=== PATIENT | female | born 2005 | race Asian ===

== ENCOUNTER 2023-03-06 10:54 | Emergency (ER) | payer OTHER, SELFPAY ==
[2023-03-06 10:56] VITALS: BP 118/74; PULSE 104; RESP 18; TEMP 35.8; O2SAT 99; BMI 21.4
--- NOTE | 2023-03-06 11:04 | ED.VIS.FEGU ---
HPI HPI - Female History of Present Illness Chief Complaint: Flank Pain Narrative Narrative: Patient presents with some dysuria and right-sided flank pain for 2 days. No fevers. Pain is constant and is not colicky. No hematuria. She denies any . No prior history of this. She was seen at [facility] and sent to the ED. [facility] Medical History no medical history Home Medications sulfamethoxazole 800 mg-trimethoprim 160 mg tablet (Bactrim DS) 1 tab PO BID #10 tabs 03/06/23 [Rx Last Taken Unknown] Allergy/AdvReac Type Severity Reaction Status Date / Time No Known Allergies Allergy Verified 03/06/23 10:55 Family History no significant family his Surgical History no surgical history Social History Smoking Status: Never smoker ROS ROS ED ROS Narrative Past medical history: Reviewed Medications: OCPs Social history: Noncontributory Review of systems: General: No fever Eyes: No visual changes ENT: No upper airway congestion, normal voice Gastrointestinal: No abdominal pain, nausea vomiting or diarrhea Genitourinary: Some dysuria. Some flank pain on the right Musculoskeletal: Denies myalgias no difficulty with ambulation Skin: No rash EXAM Physical Exam Narrative Exam Narrative: Physical exam General: Well nourished, Well developed, No Acute Distress Head: Normocephalic, Atraumatic Eyes: Conjunctiva not pale ENT: Moist mucous membranes Neck: Supple, Nontender, No lymphadenopathy Cardiovascular: Regular rate, Regular rhythm Respiratory: No distress, CTA bilaterally Abdomen: Soft, Nontender, Nondistended Back: Nontender, Normal Inspection. Slight right-sided CVA tenderness Extremities: Nontender, No edema Skin: Normal color, No rash Const Vital Signs: 03/06/23 10:56 Temperature 96.4 F L Temperature Source Temporal Pulse Rate 104 H Respiratory Rate 18 Blood Pressure 118/74 Blood Pressure Mean 88 Pulse Ox 99 Oxygen Delivery Method Room Air MDM MDM MDM Narrative Medical decision making narrative: Patient has some slight leuk esterases and blood. But the micro is negative. Because she is somewhat symptomatic I will treat her with a short course of antibiotics. 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 I do not believe a CT is warranted. I do not believe blood work is warranted. Lab Data Labs: Laboratory Results - last 24 hr 03/06/23 11:10 Urine Color Yellow Urine Clarity Sl. Cloudy Urine pH 7.0 Ur Specific [place] 1.005 Urine Protein 15 H Urine Glucose (UA) Normal Urine Ketones Negative Urine Occult Blood 25 H Urine Nitrite Negative Urine Bilirubin Negative Urine Urobilinogen Normal Ur Leukocyte Esterase 25 H Urine RBC 0-5 SEEN Urine WBC 0-5 SEEN Ur Squamous Epith Cells 0 SEEN Urine Bacteria 0 SEEN Urine Mucus 0 SEEN Urine Test Negative Discharge Plan Triage Chief Complaint: Flank Pain Other Complaint: Back ED Provider: Davis Tavares Dx/Rx/DC Orders Clinical Impression: Back pain, Dysuria Instructions: Dysuria Prescriptions: New sulfamethoxazole-trimethoprim [Bactrim DS] 800-160 mg tablet 1 tab PO BID Qty: 10 0RF Primary Care Provider: NOT,DEFINED Referrals: NOT,DEFINED [Primary Care Provider] - 3-5 Days Disposition Disposition: Home, Self Care
[2023-03-06 11:19] LABS: Bacteria 0 SEEN /hpf (None Seen); Mucous, Urine 0 SEEN /hpf (<or=2+); Squamous Epithelial Cells - UA 0 SEEN /hpf (5-10)
[2023-03-06 11:21] LABS: Color, Urine Yellow (Yellow); Glucose, Dipstick Normal (Normal); Ketone-Dipstick Negative (Negative); Leukocyte Esterase-Dipstick 25 /ul (Negative); Nitrite-Dipstick Negative (Negative); Occult Blood-Urine 25 /ul (Negative); Protein-Dipstick 15 mg/dl (Negative); Specific Gravity, Urine 1.005 (1.002-1.030); Urine Bilirubin Dipstick Negative (Negative); Urine Clarity Sl. Cloudy (Clear); Urine Urobilinogen Normal (Normal)
[2023-03-06 11:31] LABS: Internal QC Validated? YES +Cl - CLEAR BKGD; Pregnancy, Urine Negative Negative; Red Blood Cells-Urine 0-5 SEEN /hpf (0-5); White Blood Cells 0-5 SEEN /hpf (0-5)
== END 2023-03-06 11:55 | disposition home or self-care (01) ==
LOC: ED 11:54
PROVIDERS: Emergency Provider Emergency Medicine; PCP Family Medicine; Visit Provider Emergency Medicine
DX: M54.9 Dorsalgia, unspecified (principal); R30.0 Dysuria
CPT/HCPCS: 81001; 81025; 99283